=== PATIENT | female | born 1970 | race Caucasian/White ===

== ENCOUNTER 2017-04-21 19:52 | Emergency (ER) | payer MEDICARE ==
[~2017-04-21] VITALS: Ht 149.9 cm; Wt 76.2 kg
[2017-04-21 20:02] VITALS: BP_SYST 128
--- NOTE | 2017-04-21 20:50 | NUR ---
PT AMBULATORY TO BED 7 FOR EVALUATION
--- NOTE | 2017-04-21 20:54 | NUR ---
Pt ambulated into ED c/o 11/12 pain and CIFUENTES s/p finding "bump" on back of neck. Noted raised red bump on back of neck, tender to touch. No drainage noted on site. No other injuries/complaints per pt/noted. Daughter at bedside. Will continue to monitor.
--- NOTE | 2017-04-21 21:02 | NUR ---
ER Dr. Del Valle at bedside examining patient.
[2017-04-21] MEDS: KETOROLAC TROMETHAMINE 60 MG/2 ML VIAL IM ONE (21:24)
--- NOTE | 2017-04-21 21:24 | NUR ---
Medication administered. Pt tolerated well. No adverse reactions noted.
--- NOTE | 2017-04-21 21:30 | NUR ---
Patient given written and verbal discharge instructions and verbalizes understanding. ER MD Del Valle discussed with patient the results and treatment provided. Patient in stable condition. ID arm band removed. Rx of Tramadol, Bactrim, Motrin given. Patient educated on pain management and to follow up with PMD. Pain Scale 2. Dr. Del Valle aware. Opportunity for questions provided and answered.
[2017-04-21 21:36] VITALS: BP_SYST 130
== END 2017-04-21 21:30 | disposition home or self-care (01) ==
LOC: SED 19:52
DX: L03.811 Cellulitis of head [any part, except face] (principal)
CPT/HCPCS: 96372; 99283; J1885